=== PATIENT | male | born 1955 | race Caucasian/White ===

== ENCOUNTER 2024-01-14 20:58 | Emergency (ER) | payer OTHER, SELFPAY ==
[2024-01-14 21:01] VITALS: BP 164/88
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
[2024-01-14 23:41] VITALS: BP 151/78
== END 2024-01-14 23:42 | disposition home or self-care (01) ==
LOC: EMR 20:58
PROVIDERS: EMERGENCY PHYSICIAN Emergency Medicine
DX: S39.012A Strain of muscle, fascia and tendon of lower back, initial encounter (principal); V89.2XXA Person injured in unspecified motor-vehicle accident, traffic, initial encounter; Y92.410 Unspecified street and highway as the place of occurrence of the external cause; I25.10 Atherosclerotic heart disease of native coronary artery without angina pectoris; I10 Essential (primary) hypertension; E78.00 Pure hypercholesterolemia, unspecified; Z82.49 Family history of ischemic heart disease and other diseases of the circulatory system; Z85.46 Personal history of malignant neoplasm of prostate; Z95.1 Presence of aortocoronary bypass graft
CPT/HCPCS: 99283; 72100

== ENCOUNTER 2024-02-17 23:05 | Emergency (ER) | payer OTHER, SELFPAY ==
[2024-02-17 23:07] VITALS: BP 140/96
--- NOTE | 2024-02-17 23:26 | EDRN ---
Pt says he has had elevated bp and chest heaviness for 3 days. SBP has been in 150's. Pt has been tired a lot today feeling like he has indigestion. Pt texted his [employer] yesterday and was advised to go to ED if symptoms continue. Pt says he waited
until now because he did not feel it was serious enough. Chest heaviness is constant however pt says he did not feel it this morning when he woke and it came on gradually throughout the day. Pt went to chiropractor today and it bothered him again.
Pt noted L arm pain tonight. No sob, abd pain, n/v, diaphoresis, urinary symptoms, weakness, dizziness, fever/cough/chills. Pt did not take any medications for discomfort.
[2024-02-17 23:33] VITALS: BMI 32.8
[2024-02-17 23:40] LABS: % Basophils 0.3 % (0-2); % Eosinophils 4.8 % (0-6); % Immature Granulocytes 0.3 % (0-0.5); % Neutrophils 70.6 % (42.2-75.2); Absolute Eosinophils 0.3 10^3/uL (0-0.7); Absolute Monocytes 0.4 10^3/uL (0.1-0.6); Absolute Neutrophils 4.2 10^3/uL (1.4-6.5); Hematocrit 35.3 % (39.0-52.0); Hemoglobin 12.7 g/dL (13.0-18.0); Mean Corpuscular Hgb 29.1 pg (27.0-31.0); Mean Platelet Volume 10.3 fL (7.4-10.4); Nucleated Red Blood Cells % 0 % (-); Platelet Count 201 10^3/uL (130-400); Red Blood Cell Count 4.36 10^6/uL (4.70-6.10); Red Cell Dist. Width 12.6 % (11.5-14.5)
[2024-02-17 23:53] LABS: ALT (SGPT) 19 U/L (0-50); AST (SGOT) 26 U/L (17-59); Albumin 4.1 g/dl (3.5-5.0); Alkaline Phosphatase 73 U/L (38-126); Blood Urea Nitrogen 30 mg/dl (9-20); Calcium 9.6 mg/dl (8.4-10.2); Carbon Dioxide 22 mmol/L (22-30); Chloride 104 mmol/L (98-107); Estimated Creatinine Clearance 83 ml/min; Glucose 107 mg/dl (70-99); Potassium 4.5 mmol/L (3.5-5.1); Sodium 138 mmol/L (135-145); Total Bilirubin 0.4 mg/dl (0.2-1.3); Total Protein 6.4 g/dl (6.3-8.2); eGFR > 60.00
[2024-02-18] VITALS: BP 148/69
[2024-02-18 00:04] LABS: Troponin I < 0.012 ng/ml
--- NOTE | 2024-02-18 00:07 | ED.GENMED ---
History of Present Illness
General
Chief Complaint: Blood Pressure Problem
Source: patient
Exam Limitations: none
Time Seen by Provider: 02/17/24 23:31
History of Present Illness
History of Present Illness:
68-year-old male with history of coronary artery disease requiring bypass surgery presents with intermittent chest discomfort with left arm heaviness over the past 3 days. Pain is random and not exertional. No current chest discomfort. He is on
lisinopril metoprolol and Plavix. No cough. He had COVID 3 weeks ago. Pain is not pleuritic. No leg swelling or calf pain. No other complaints at this time
Past History
Past History
ED Past Medical History: CAD, Cancer (Prostate cancer with surgery and radiation,), HTN, Hypercholesterolemia and Other (Hiatal hernia, Tinnitus, )
ED Past Surgical History: Cardiac (CABG), Urological (Suprapubic catheter) and Other (Suprapubic catheter, cataracts, Left lung resection)
Social History
Tobacco: Non-smoker
Alcohol: None
Personal: Single
Living: alone
Family History
Family History: CAD
Phy Exam
Physical Exam
Physical Exam:
General: Well-appearing male no acute respiratory distress
HEENT: Normocephalic atraumatic
Heart: Regular rate and rhythm no murmurs
Lungs: Clear no wheeze
Abdomen soft nontender nondistended no guarding or rebound normal bowel sound
Extremities: No cyanosis
Skin: Warm no
Course
Orders/Labs/Results
Orders:
Orders
02/17/24 23:10
Electrocardiogram (*1) Urgent
Reason for Study: Hypertension, Benign
02/17/24 23:11
EKG- Treatment ONCE
02/17/24 23:31
Complete Blood Count/With Diff Urgent
Comprehensive Metabolic Panel Urgent
Troponin I Urgent
02/18/24 00:00
CR Chest - 2 Views Urgent
Reason For Exam: chest pain
Abnormal Lab Results
02/17/24
23:31
RBC 4.36 L 10^6/uL
(4.70-6.10)
Hgb 12.7 L g/dL
(13.0-18.0)
Hct 35.3 L %
(39.0-52.0)
Absolute Lymphs (auto) 1.0 L 10^3/uL
(1.2-3.4)
Lymphocytes % 17.0 L %
(20.5-51.1)
BUN 30 H mg/dl
(9-20)
Glucose 107 H mg/dl
(70-99)
02/17/24 23:31
02/17/24 23:31
Vital Signs
Initial and Last Documented VS:
Initial Vital Signs
Temp Pulse Resp BP Pulse Ox
97.8 F 52 22 140/96 98
02/17/24 23:07 02/17/24 23:07 02/17/24 23:07 02/17/24 23:07 02/17/24 23:07
Last Documented Vital Signs
Temp Pulse Resp BP Pulse Ox
97.8 F 50 13 148/69 98
02/17/24 23:07 02/18/24 00:00 02/18/24 00:00 02/18/24 00:00 02/17/24 23:07
MDM/Problems Addressed
Differential Diagnosis Includes:
Elevated blood pressure readings with chest discomfort. Or ACS. Troponin EKG pending. Check labs otherwise. Vital signs are stable currently. He is nontoxic in appearance. Do not suspect PE or dissection given intermittent nature of symptoms
*Critical Care Note
Total Time (30-74mins, 75-104mins- exclusive of procedures): Not Applicable
Update Note
Update Note:
Workup here negative including undetectable troponin clear chest x-ray. Patient remained stable and comfortable. He has a code inspector he follows with Mateo Hernandezjanes. He plans on following up with them. At this point no indication for
admission.
ED Attending Note
-
Portions of this chart may have been created with voice recognition software.� Occasional wrong word or��sound alike� substitutions may have occurred due to the inherent limitations of voice recognition software.
Discharge Plan
Departure
Patient Disposition: Home (Routine Discharge)
Date of Disposition: 02/18/24
Time of Disposition: 01:29
Patient with high blood pressure during this ER visit?: No
Discharge Problem:
Chest pain
Instructions: Chest Pain NON-DHP Flexible Nanny Follow Up
Prescriptions:
No Action
lisinopril 20 mg Tablet
20 mg PO DAILY
travoprost [Travatan Z] 0.004 % Drops
1 drp BOTH EYES QPM
polyethylene glycol 3350 [Miralax] 17 gram Powder In Packet
17 g PO DAILYPRN PRN (Reason: constipation)
clopidogrel [Plavix] 75 mg Tablet
75 mg PO DAILY
metoprolol succinate 25 mg Tablet Extended Release 24 Hr
25 mg PO BID
rosuvastatin 10 mg Tablet
10 mg PO DAILY
oxycodone 7.5 mg Tablet, Oral Only
7.5 mg PO TID
abiraterone
4 tab PO DAILY
Patient Comments:
pt does not know mg
Referrals:
Lynn Mckoy NP [Family Provider] -
Activity Restrictions/Additional Instructions:
Please return here for worsening symptoms otherwise follow-up with your code inspector for next available appointment
Interventions
Interventions:
*Risk Screen - Suicide Last Done: 02/17/24 23:07
*General Assessment Last Done: 02/17/24 23:17
*Neglect/Abuse Screening Last Done: 02/17/24 23:07
*ED COVID-19 Vaccine History Last Done: 02/17/24 23:17
ED- Cardiac Assessment Last Done: 02/17/24 23:44
ED- Neurological Assessment Last Done: 02/17/24 23:44
ED- Pulmonary Assessment Last Done: 02/17/24 23:44
Discharge Date and Time
Print Language: NAMIBIAN
[2024-02-18 01:05] VITALS: BP 153/84
== END 2024-02-18 01:43 | disposition home or self-care (01) ==
LOC: EMR 23:05
PROVIDERS: Emergency Medicine; EMERGENCY PHYSICIAN Emergency Medicine; FAMILY PHYSICIAN Nurse Practitioner Family
DX: R07.89 Other chest pain (principal); M79.602 Pain in left arm; I25.10 Atherosclerotic heart disease of native coronary artery without angina pectoris; I10 Essential (primary) hypertension; E78.00 Pure hypercholesterolemia, unspecified; K44.9 Diaphragmatic hernia without obstruction or gangrene; Z95.1 Presence of aortocoronary bypass graft; Z85.46 Personal history of malignant neoplasm of prostate; Z92.3 Personal history of irradiation; Z90.2 Acquired absence of lung [part of]; Z79.02 Long term (current) use of antithrombotics/antiplatelets; Z79.899 Other long term (current) drug therapy; Z91.048 Other nonmedicinal substance allergy status
CPT/HCPCS: 99283; 71046; 80053; 84484; 85025; 93005

== ENCOUNTER 2024-04-11 10:59 | Emergency (ER) | payer OTHER, SELFPAY ==
[2024-04-11 11:03] VITALS: BP 155/95
[2024-04-11 11:37] VITALS: BMI 32.9
[2024-04-11] MEDS: MORPHINE SULFATE 4 MG IV (11:47)
[2024-04-11 12:06] LABS: % Basophils 0.4 % (0-2); % Eosinophils 2.9 % (0-6); % Immature Granulocytes 0.4 % (0-0.5); % Lymphocytes 9.8 % (20.5-51.1); % Monocytes 6.3 % (1.7-9.3); % Neutrophils 80.2 % (42.2-75.2); Absolute Eosinophils 0.2 10^3/uL (0-0.7); Absolute Lymphocytes 0.8 10^3/uL (1.2-3.4); Absolute Monocytes 0.5 10^3/uL (0.1-0.6); Absolute Neutrophils 6.2 10^3/uL (1.4-6.5); Hematocrit 35.4 % (39.0-52.0); Hemoglobin 12.5 g/dL (13.0-18.0); Mean Corp Hgb Conc. 35.3 g/dL (33.0-37.0); Mean Corpuscular Hgb 28.9 pg (27.0-31.0); Mean Corpuscular Volume 81.9 fL (80.0-94.0); Mean Platelet Volume 10.6 fL (7.4-10.4); Nucleated Red Blood Cells % 0 % (-); Platelet Count 237 10^3/uL (130-400); Red Blood Cell Count 4.32 10^6/uL (4.70-6.10); White Blood Cell Count 7.7 10^3/uL (4.8-10.8)
[2024-04-11 12:16] LABS: ALT (SGPT) 34 U/L (0-50); AST (SGOT) 40 U/L (17-59); Albumin 4.6 g/dl (3.5-5.0); Alkaline Phosphatase 93 U/L (38-126); Blood Urea Nitrogen 27 mg/dl (9-20); Calcium 9.8 mg/dl (8.4-10.2); Carbon Dioxide 25 mmol/L (22-30); Chloride 104 mmol/L (98-107); Estimated Creatinine Clearance 94 ml/min; Glucose 113 mg/dl (70-99); Potassium 4.4 mmol/L (3.5-5.1); Sodium 144 mmol/L (135-145); Total Bilirubin 0.6 mg/dl (0.2-1.3); Total Protein 7.3 g/dl (6.3-8.2); eGFR > 60.00
[2024-04-11] MEDS: DILAUDID 0.5 MG IV (12:54)
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
[2024-04-11 13:33] VITALS: BP 155/88
== END 2024-04-11 14:00 | disposition home or self-care (01) ==
LOC: EMR 10:59
PROVIDERS: Physician Assistant; EMERGENCY PHYSICIAN Emergency Medicine; FAMILY PHYSICIAN Nurse Practitioner Family
DX: S22.42XA Multiple fractures of ribs, left side, initial encounter for closed fracture (principal); V29.408A Other motorcycle driver injured in collision with unspecified motor vehicles in traffic accident, initial encounter
CPT/HCPCS: 99285; 96374; 96375; 71260; 74177; 80053; 85025; Q9967